=== PATIENT | male | born 1940 | race Hispanic/Latino ===

== ENCOUNTER 2017-05-13 15:33 | Inpatient (IN) | payer MEDICARE ==
[2017-05-13] MEDS ORDERED: DULCOLAX PR PRN (16:22)
[2017-05-13] MEDS ORDERED: MILK OF MAGNESIA PO PRN (16:22)
[2017-05-13] MEDS ORDERED: ZOFRAN IV PRN (16:22)
[2017-05-13] MEDS ORDERED: TYLENOL PO PRN (16:22)
--- NOTE | 2017-05-13 16:33 | History and Physical Report ---
History of Present Illness Date of examination: 05/13/17 History of present illness: H&P obtained from the office. Medications and Allergies Allergies Allergy/AdvReac Type Severity Reaction Status Date / Time No Known Allergies Allergy Unverified 05/13/17 15:52 Home Medications Medication Instructions Recorded Confirmed Last Taken Type Aspirin EC [Aspirin Enteric Coated 81 mg PO QDAY 05/13/17 05/13/17 Unknown History TAB] Fluticasone [Flonase] 1 spray NS QDAY 05/13/17 05/13/17 Unknown History Ramipril 5 mg PO QDAY 05/13/17 05/13/17 Unknown History Simvastatin [Zocor TAB] 40 mg PO QHS 05/13/17 05/13/17 Unknown History Active Meds: Active Medications Acetaminophen (Tylenol) 650 mg PO Q4H PRN PRN Reason: Pain MILD(1-3)/Fever >100.5/DUBOIS Bisacodyl (Dulcolax) 10 mg [place] QDAY PRN PRN Reason: Constipation unrelieved by MOM Enoxaparin Sodium (Lovenox) 40 mg SUB-Q QDAY ART Magnesium Hydroxide (Milk Of Magnesia) 30 ml PO Q4H PRN PRN Reason: Constipation Ondansetron HCl (Zofran) 4 mg IV Q8H PRN PRN Reason: N/V unrelieved by Reglan Assessment and Plan Severe bradycardia, high degree AV block Hypertension Hx of Wenkebach AV block Hyperlipidemia Plan: Admit for further evaluation. Check labs. Thallium stress test and echo. EP consultation for PM evaluation.
[2017-05-13] MEDS ORDERED: ULTRAM PO PRN (16:47)
[2017-05-13 20:07] LABS: Hematocrit 47.5 % (35.5-45.6); Mean Corpuscular HGB Conc 34 % (32-34); Mean Corpuscular Hemoglobin 31 pg (28-32); Mean Corpuscular Volume 93 fl (84-94); Platelet Count 217 K/mm3 (140-440); Red Cell Distribution Width 13.3 % (13.2-15.2); White Blood Count 10.2 K/mm3 (4.5-11.0)
[2017-05-13 20:30] LABS: Anion Gap 20 mmol/L; BUN/Creatinine Ratio 19; Blood Urea Nitrogen 15 mg/dL (9-20); Carbon Dioxide 23 mmol/L (22-30); Chloride 98.6 mmol/L (98-107); Glucose 216 mg/dL (75-100); Potassium 4.3 mmol/L (3.6-5.0); Sodium 137 mmol/L (137-145)
[2017-05-13 21:09] LABS: Basophils % (Manual) 0 % (0.0-1.8); Blastocytes % (Manual) 0 %
[2017-05-13 21:10] LABS: Diff Status Complete; RBC Morphology Normal
[2017-05-13] MEDS: PRAVACHOL PO SCH (21:37)
[2017-05-13] MEDS ORDERED: NON-FORMULARY (Simvastatin 40 MG) PO SCH (22:00)
[2017-05-14 07:30] LABS: Anion Gap 18 mmol/L; BUN/Creatinine Ratio 18; Blood Urea Nitrogen 16 mg/dL (9-20); Calcium 8.8 mg/dL (8.4-10.2); Carbon Dioxide 24 mmol/L (22-30); Chloride 100.6 mmol/L (98-107); Glucose 96 mg/dL (75-100); Potassium 4.7 mmol/L (3.6-5.0); Sodium 138 mmol/L (137-145)
--- NOTE | 2017-05-14 08:01 | XRay Report ---
Chest 2 views. History: Bradycardia. Findings: The heart and lungs reveal no acute or significant abnormalities.
[2017-05-14] MEDS ORDERED: RAMIPRIL 5 MG PO SCH (10:00)
[2017-05-14] MEDS ORDERED: LOVENOX SUB-Q SCH (11:00)
[2017-05-14] MEDS ORDERED: ATROPINE 0.1% (CARDIAC) IV PRN (11:00)
[2017-05-14 11:36] LABS: INR 1.01 (0.87-1.13)
[2017-05-14] MEDS ORDERED: NACL 0.45% 1000 ML 1,000 ML IV SCH (12:00)
[2017-05-14] MEDS ORDERED: NACL 0.9% 1,000 ML, VANCOMYCIN VIAL 1,000 MG IR ONE (12:00)
[2017-05-14] MEDS ORDERED: ANCEF/STERILE WATER 2 GM/20 ML 2 GM/20 ML SYRINGE IV NR (12:00)
[2017-05-14] MEDS ORDERED: NACL 0.45% 1000 ML 1,000 ML IV ONE (12:02)
[2017-05-14] MEDS ORDERED: XYLOCAINE 1% 20 mL ONE (13:17)
[2017-05-14] MEDS ORDERED: NACL 0.9% 500 ML IR ONE (13:17)
[2017-05-14] MEDS ORDERED: ANCEF/STERILE WATER 2 GM/20 ML 2 GM/20 ML SYRINGE IV ONE (13:18)
--- NOTE | 2017-05-14 13:51 | Event Note ---
Date: 05/14/17 Pt evaluated. Telemetry monitoring is consistent with intermittent complete heart block and ventricular rates in the high 30s. Will proceed with PPM implant. Extensively discussed with patient and informed consent obtained. Luis Felipe Mathews MD
[2017-05-14] MEDS: MARCAINE 0.5% 60 ML INFILTRATI ONE ×2 (13:52→14:07)
[2017-05-14] MEDS ORDERED: VANCOMYCIN VIAL 1,000 MG in NACL 0.9% 1,000 ML IRRIGATION ONE (13:56)
[2017-05-14] MEDS: SUBLIMAZE ONE ×2 (14:04→14:07)
[2017-05-14] MEDS: VERSED ONE ×2 (14:04→14:07)
--- NOTE | 2017-05-14 15:21 | Progress Note ---
Subjective Date of service: 05/14/17 Interval history: Pt underwent dual chamber PPM implant without apparent complications. If otherwise stable, discharge home tomorrow after PPM interrogation. Prescribe short course of pain medication (percocet, 10 tabs) at time of discharge. Luis Felipe Mathews MD Objective Vital Signs Temp Pulse Resp BP BP Pulse Ox 05/14/17 11:39 97.8 F 41 L 19 154/79 100 05/14/17 09:00 40 L 05/14/17 04:13 98.2 F 05/14/17 03:57 38 L 97 05/14/17 03:56 39 L 3 L 126/69 98 05/14/17 01:10 31 L 05/14/17 00:20 98.3 F 05/14/17 00:05 32 L 95 05/14/17 00:04 34 L 20 109/55 96 05/13/17 20:41 98.6 F 45 L 18 185/60 98 05/13/17 20:23 45 L 98 05/13/17 17:54 98.4 F 05/13/17 17:50 42 L 18 163/64 98 05/13/17 16:26 98.5 F 38 L 18 122/55 99 - Labs and Meds Coagulation 05/14/17 Range/Units Unknown PT 13.8 (12.2-14.9) Sec. INR 1.01 (0.87-1.13) CBC 05/13/17 Range/Units 19:35 WBC 10.2 (4.5-11.0) K/mm3 RBC 5.10 H (3.65-5.03) M/mm3 Hgb 16.0 H (11.8-15.2) gm/dl Hct 47.5 H (35.5-45.6) % Plt Count 217 (140-440) K/mm3 Lymph # Clinical Trial Leader Comprehensive Metabolic Panel 05/13/17 05/14/17 Range/Units 19:39 06:45 Sodium 137 138 (137-145) mmol/L Potassium 4.3 4.7 (3.6-5.0) mmol/L Chloride 98.6 100.6 (98-107) mmol/L Carbon Dioxide 23 24 (22-30) mmol/L BUN 15 16 (9-20) mg/dL Creatinine 0.8 0.9 (0.8-1.5) mg/dL Glucose 216 H 96 (75-100) mg/dL Calcium 9.0 8.8 (8.4-10.2) mg/dL
[2017-05-14] MEDS ORDERED: NORCO 5/325 PO PRN (15:22)
[2017-05-14] MEDS: ZESTRIL PO SCH (18:30)
[2017-05-14] MEDS: HALFPRIN EC PO SCH (18:30)
[2017-05-14] MEDS: PRAVACHOL PO SCH (21:33)
[2017-05-14] MEDS ORDERED: ANCEF/NS 1 GM/50 ML 1 GM/50 ML BAG IV SCH (22:00)
[2017-05-14] MEDS: ceFAZolin 1 GM in NACL 0.9% 20 ML IV SCH (22:43)
[2017-05-15] MEDS: ceFAZolin 1 GM in NACL 0.9% 20 ML IV SCH (05:27)
--- NOTE | 2017-05-15 07:33 | XRay Report ---
AP CHEST: HISTORY: Pacemaker placement A 2-lead pacemaker device has been inserted since 05/13/17. AP view of the chest demonstrates a normal mediastinal and cardiac contour with clear lungs and normal bony and soft tissue structures. IMPRESSION: Unremarkable AP chest.
[2017-05-15] MEDS: ZESTRIL PO SCH (10:36)
[2017-05-15] MEDS: HALFPRIN EC PO SCH (10:37)
--- NOTE | 2017-05-15 11:57 | Discharge Summary ---
Providers - Providers Date of Admission: 05/13/17 17:04 Date of discharge: 05/15/17 Attending physician: CLAUDETTE ARRIAGA Primary care physician: LIOR HERNÁNDEZ Hospitalization Condition: Good Hospital course: 76yr old male who was admitted by his primary astronomy instructor for complete heart block and ventricular rates in the high 30s. An echocardiogram done showed a normal left ventricular systolic function, EF 55-60%. Patient was evaluated by the math and science instructor, Dr Mathews, and underwent a dual chamber permanent pacemaker implant. Post PPM implant, the patient has remained stable. He has no complaints. Normal device function on interrogation. Patient will be discharged home today and will follow up at [facility] within 1 week. Disposition: - TO HOME OR SELFCARE Core Measure Documentation - Palliative Care Palliative Care/ Comfort Measures: Not Applicable - Core Measures Any of the following diagnoses?: none Exam - Constitutional Vitals: Temp Pulse Resp BP Pulse Ox 98.0 F 78 18 161/85 97 05/15/17 08:56 05/15/17 08:56 05/15/17 08:56 05/15/17 08:56 05/15/17 08:56 General appearance: Present: no acute distress - EENT Eyes: Present: PERRL ENT: hearing intact - Neck Neck: Present: normal ROM - Respiratory Respiratory effort: normal - Cardiovascular Rhythm: other (paced) - Psychiatric Psychiatric: appropriate mood/affect Plan Activity: advance as tolerated Diet: low cholesterol, low salt Follow up with: LIOR HERNÁNDEZ MD [Primary Care Provider] - 7 Days SIMONE ARRIAGA MD [Staff Physician] - 7 Days Prescriptions: HYDROcodone/APAP 5-325 [[place] 5-325 mg TAB] 1 each PO Q6H PRN #10 tablet PRN Reason: Pain, Moderate (4-6)
[2017-05-15] MEDS ORDERED: CATAPRES PO ONE (13:30)
[2017-05-15 15:24] VITALS: BP 133/67
== END 2017-05-15 17:53 | disposition home or self-care (01) | DRG 244 ==
LOC: UNDOADMIN 15:33 → 4A 15:33
PROVIDERS: ADMIT Internal Medicine Cardiovascular Disease; ATTEND Internal Medicine Cardiovascular Disease
PROC: 0JH606Z Insertion of Pacemaker, Dual Chamber into Chest Subcutaneous Tissue and Fascia, Open Approach (ICD-10-PCS; principal; 2017-05-14)
PROC: 02H63JZ Insertion of Pacemaker Lead into Right Atrium, Percutaneous Approach (ICD-10-PCS; 2017-05-14)
PROC: 02HK3JZ Insertion of Pacemaker Lead into Right Ventricle, Percutaneous Approach (ICD-10-PCS; 2017-05-14)
DX: I44.2 Atrioventricular block, complete (principal); R00.1 Bradycardia, unspecified; I10 Essential (primary) hypertension; E78.5 Hyperlipidemia, unspecified; I73.9 Peripheral vascular disease, unspecified; I34.0 Nonrheumatic mitral (valve) insufficiency; I07.1 Rheumatic tricuspid insufficiency; R94.31 Abnormal electrocardiogram [ECG] [EKG]; Z79.82 Long term (current) use of aspirin; Z79.899 Other long term (current) drug therapy
CPT/HCPCS: 33208; 36415; 71010; 71020; 80048; 83735; 84443; 84484; 85007; 85025; 85610; 93005; 93010; 93306; A9270-GY; C1779; C1781; C1785; C1892; J0690; J2250; J3010; J3370